=== PATIENT | male | born 1945 | race Caucasian/White ===

== ENCOUNTER 2019-05-11 10:17 | Emergency (ER) | payer MEDICARE, BC ==
[~2019-05-11] VITALS: Ht 185.4 cm; Wt 97.0 kg
--- NOTE | 2019-05-11 10:50 | NUR ---
HAD EGD AND COLONSCOPY STOMACH WAS INFLAMED AND HAD A RING IN HIS ESOPHAGUS
[2019-05-11 11:10] LABS: CLARITY,URINE CLEAR (Clear); COLOR,URINE YELLOW (Yellow); GLUCOSE, URINE NEGATIVE (Neg); KETONES,URINE NEGATIVE (Neg); LEUKOCYTE ESTERASE ,URINE NEGATIVE (Neg); NITRITES, URINE NEGATIVE (Neg); OCCULT BLOOD,URINE TRACE-LYSED (Neg); PH,URINE 5.5 (4.8-8.0); PROTEIN,URINE NEGATIVE (Neg); UROBILINOGEN,URINE 0.2 E.U/dL (0.2-1.0)
[2019-05-11 11:12] LABS: BASOPHILS # (AUTO) 0.1 X10'3 (0-0.2); BASOPHILS % (AUTO) 0.8 % (0-1); EOSINOPHILS % (AUTO) 0.2 % (0-6); HEMOGLOBIN 14.2 g/dl (14.0-17.9); LYMPHOCYTES % (AUTO) 9.2 % (21-51); MEAN CORPUSCULAR HEMOGLOBIN 29.9 PG (27.0-31.0); MEAN CORPUSCULAR HGB CONC 33.8 g/dL (33.0-36.5); MEAN CORPUSCULAR VOLUME 88.3 FL (78-98); MEAN PLATELET VOLUME 8.6 FL (7.4-10.4); NEUTROPHILS # (AUTO) 8.3 X10'3 (1.8-7.7); NEUTROPHILS % (AUTO) 79.8 % (42-75); PLATELET COUNT 270 X10'3 (140-440); RED BLOOD COUNT 4.76 X10'6 (4.70-6.10); RED CELL DISTRIBUTION WIDTH 14.3 % (11.5-14.5); WHITE BLOOD COUNT 10.4 X10'3 (4.5-11.0)
[2019-05-11] MEDS ORDERED: mag hydrox/Alum hydrox/simeth 30ml oral suspension PO ONE (11:20)
[2019-05-11] MEDS ORDERED: famotidine 20mg tablet PO ONE (11:20)
[2019-05-11 11:27] LABS: ALANINE AMINOTRANSFERASE 26 U/L (12-78); ALBUMIN 4.2 G/DL (3.4-5.0); ALBUMIN/GLOBULIN RATIO 1.3 (1.1-1.5); ALKALINE PHOSPHATASE 90 IU/L (46-116); ANION GAP 6 (8-16); ASPARTATE AMINO TRANSFERASE 19 U/L (10-37); BILIRUBIN,TOTAL 0.9 MG/DL (0.1-1.0); BLOOD UREA NITROGEN 15 MG/DL (7-18); BUN/CREATININE RATIO 14.9 (5.4-32.0); CALCIUM 9.4 MG/DL (8.5-10.1); CHLORIDE 102 MMOL/L (99-107); CREATININE 1.01 MG/DL (0.60-1.10); GLUCOSE 108 MG/DL (70-104); LIPASE 87 U/L (73-393); POTASSIUM 3.9 MMOL/L (3.5-5.1); SODIUM 136 MMOL/L (135-145); TOTAL CARBON DIOXIDE 28.5 MMOL/L (24-32); TOTAL PROTEIN 7.4 G/DL (6.4-8.2); eGFR 72 ML/MIN
[2019-05-11 11:31] LABS: UA COLLECTION TYPE CLN CATCH MIDSTREAM
[2019-05-11 11:32] LABS: BACTERIA,URINE NONE SEEN /HPF (Neg); MUCUS STRANDS FEW /LPF (Neg); RBC,URINE 0-2 /HPF (0-2); SQUAMOUS EPITHELIAL CELL,UR FEW /LPF (FEW); WBC,URINE NONE SEEN /HPF (0-4)
[2019-05-11 11:54] VITALS: BP 142/60
[2019-05-11] MEDS ORDERED: FAMO-128 PO (12:40)
[2019-05-11] MEDS ORDERED: DICY10CA88 PO (12:40)
== END 2019-05-11 12:48 | disposition home or self-care (01) ==
LOC: ER 10:17
DX: R10.13 Epigastric pain (principal)
CPT/HCPCS: 36415; 74176; 80053; 81001; 83690; 84484; 85025; 93005; 99284

== ENCOUNTER 2021-01-04 18:22 | Inpatient (IN) | payer MEDICARE, BC ==
[~2021-01-04] VITALS: Ht 184.2 cm; Wt 88.6 kg
[~2021-01-04 18:22] MED LIST: DICY10CA88 PO; FAMO-128 PO
--- NOTE | 2021-01-04 19:00 | NUR ---
PATIENT'S INITIAL O2 SAT IS 88% ON ROOM AIR. O2 PER NC APPLIED AT 3LPM. O2 SATS 92% WITH O2 IN PLACE.
[2021-01-04 19:04] LABS: BASOPHILS % (AUTO) 0.3 % (0-1); EOSINOPHILS % (AUTO) 0 % (0-6); HEMOGLOBIN 13.8 g/dl (14.0-17.9); LYMPHOCYTES # (AUTO) 0.8 X10'3 (1.1-4.8); LYMPHOCYTES % (AUTO) 8.8 % (21-51); MEAN CORPUSCULAR HEMOGLOBIN 29.2 PG (27.0-31.0); MEAN CORPUSCULAR HGB CONC 34.4 g/dL (33.0-36.5); MEAN PLATELET VOLUME 7.8 FL (7.4-10.4); MONOCYTES # (AUTO) 0.4 X10'3 (0-0.9); MONOCYTES % (AUTO) 4.8 % (2-12); NEUTROPHILS # (AUTO) 7.8 X10'3 (1.8-7.7); NEUTROPHILS % (AUTO) 86.1 % (42-75); PLATELET COUNT 298 X10'3 (140-440); RED CELL DISTRIBUTION WIDTH 14.1 % (11.5-14.5); WHITE BLOOD COUNT 9.1 X10'3 (4.5-11.0)
[2021-01-04 19:17] LABS: ALANINE AMINOTRANSFERASE 92 U/L (12-78); ALBUMIN 2.9 G/DL (3.4-5.0); ALBUMIN/GLOBULIN RATIO 0.7 (1.1-1.5); ALKALINE PHOSPHATASE 117 IU/L (46-116); ANION GAP 12 (8-16); ASPARTATE AMINO TRANSFERASE 61 U/L (10-37); BLOOD UREA NITROGEN 21 MG/DL (7-18); BUN/CREATININE RATIO 15.7 (5.4-32.0); C-REACTIVE PROTEIN 11.91 MG/DL (0.0-0.5); CALCIUM 8.5 MG/DL (8.5-10.1); CHLORIDE 100 MMOL/L (99-107); CREATININE 1.34 MG/DL (0.60-1.10); GLUCOSE 142 MG/DL (70-104); LACTATE DEHYDROGENASE 316 U/L (85-227); POTASSIUM 4.4 MMOL/L (3.5-5.1); SODIUM 134 MMOL/L (135-145); TOTAL CARBON DIOXIDE 21.9 MMOL/L (24-32); TOTAL PROTEIN 6.8 G/DL (6.4-8.2); eGFR 52 ML/MIN
[2021-01-04] MEDS ORDERED: iohexol 350MG/ML 100ml bottle IV ONE (19:54)
--- NOTE | 2021-01-04 20:45 | NUR ---
PATIENT PLACED IN ROOM 12 (ER) AFTER CT SCAN. WAS NOTIFIED THAT PATIENT WILL BE KEPT INSIDE ER FOR FURTHER TREATMENT/EVALUATION. STATES SHE WILL GO HOME AND WILL CALL BACK LATER FOR UPDATES. , YESENIA KNAPP CONTACT NUMBER ([phone]
[2021-01-04] MEDS ORDERED: DEXA4TAB PO (20:53)
[2021-01-04] MEDS ORDERED: FLO0.4C PO (20:53)
[2021-01-04] MEDS ORDERED: AZIT500T9 PO (20:53)
[2021-01-04] MEDS ORDERED: dexamethasone 4mg tablet PO ONE (20:55)
[2021-01-04] MEDS ORDERED: DEXAMETHASONE 6 MG TABLET PO ONE (21:00)
[2021-01-04] MEDS ORDERED: enoxaparin 100mg/ml syringe SUBCUT ONE (21:25)
[2021-01-04 21:41] LABS: PARTIAL THROMBOPLASTIN TIME 31 SECONDS (22-32)
[2021-01-05] MEDS ORDERED: mag hydrox/Alum hydrox/simeth 30ml oral suspension PO PRN (00:15)
[2021-01-05] MEDS ORDERED: potassium Cl 40MEQ/1/2NS 520ml 520 ML IV PRN ×2 (00:15)
[2021-01-05] MEDS ORDERED: ondansetron/PF 4mg/2ml inj IV PRN (00:15)
[2021-01-05] MEDS ORDERED: magnesium hydroxide 30ml (MOM) UD suspension PO PRN (00:15)
[2021-01-05] MEDS ORDERED: acetaminophen 325mg tablet PO PRN (00:15)
[2021-01-05] MEDS ORDERED: potassium Cl 20 mEq SR tablet PO PRN ×2 (00:15)
[2021-01-05] MEDS ORDERED: dexamethasone 4mg/ml inj IV SCH (02:00)
[2021-01-05 03:45] VITALS: BP 136/68
[2021-01-05] MEDS: Melatonin 3mg tablet PO SCH ×2 (04:15→21:11)
--- NOTE | 2021-01-05 07:03 | NUR ---
reported to days. noted pt resting after melatonin. call light in reach. has not voided since 0400 admission.
[2021-01-05] MEDS ORDERED: enoxaparin 30mg/0.3ml syringe SUBCUT SCH (08:00)
[2021-01-05] MEDS ORDERED: enoxaparin 60mg/0.6ml syringe SUBCUT SCH (08:00)
[2021-01-05] MEDS: K and/or MAG REPLACEMENT MC SCH ×2 (08:00→20:00)
[2021-01-05] MEDS ORDERED: azithromycin 250mg tablet PO SCH (08:00)
[2021-01-05 10:00] VITALS: BP 125/69
[2021-01-05] MEDS: tamsulosin 0.4mg capsule PO SCH (11:15)
[2021-01-05] MEDS: docusate sod 100mg capsule PO SCH ×2 (11:16→21:11)
[2021-01-05] MEDS ORDERED: apixaban 5mg tablet PO ONE (11:20)
[2021-01-05] MEDS: dexamethasone 4mg/ml inj IV SCH ×2 (11:29→21:12)
--- NOTE | 2021-01-05 13:34 | NUR ---
Malnutrition Consult "COVID wt loss": Pt admit DX COVID-19 PNA, and new PE per EMR. Pt has no significant weakness noted, no edema, skin intact, appears WD/WN per ER note, and didn't report specific amount of wt loss per EMR. Current standing scald wt making BMI 26 w/ no prior scaled wt hx. PO regular diet meals pending this admit. 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 Will monitor for nutrition intervention needs this admit. Addendum: 01/05/21 at [address] Amended: Links added.
[2021-01-05 14:00] VITALS: BP 125/70
[2021-01-05 18:00] VITALS: BP 128/61
[2021-01-05] MEDS ORDERED: Melatonin 3mg tablet PO SCH (21:00)
[2021-01-05] MEDS: apixaban 5mg tablet PO SCH (21:10)
[2021-01-05 22:00] VITALS: BP 122/58
[2021-01-06 02:00] VITALS: BP 100/52
[2021-01-06 06:00] VITALS: BP 112/67
--- NOTE | 2021-01-06 06:20 | NUR ---
received report from liz carrillo
[2021-01-06] MEDS: K and/or MAG REPLACEMENT MC SCH ×2 (08:00→20:00)
[2021-01-06 08:32] LABS: BASOPHILS % (AUTO) 0.1 % (0-1); EOSINOPHILS % (AUTO) 0 % (0-6); HEMATOCRIT 41.3 % (42.0-52.0); HEMOGLOBIN 13.7 g/dl (14.0-17.9); LYMPHOCYTES # (AUTO) 0.6 X10'3 (1.1-4.8); LYMPHOCYTES % (AUTO) 5.2 % (21-51); MEAN CORPUSCULAR HEMOGLOBIN 28.7 PG (27.0-31.0); MEAN CORPUSCULAR HGB CONC 33.1 g/dL (33.0-36.5); MEAN CORPUSCULAR VOLUME 86.7 FL (78-98); MEAN PLATELET VOLUME 8.1 FL (7.4-10.4); MONOCYTES # (AUTO) 0.7 X10'3 (0-0.9); MONOCYTES % (AUTO) 5.9 % (2-12); NEUTROPHILS # (AUTO) 10.3 X10'3 (1.8-7.7); NEUTROPHILS % (AUTO) 88.8 % (42-75); PLATELET COUNT 322 X10'3 (140-440); RED BLOOD COUNT 4.77 X10'6 (4.70-6.10); RED CELL DISTRIBUTION WIDTH 14.2 % (11.5-14.5); WHITE BLOOD COUNT 11.6 X10'3 (4.5-11.0)
[2021-01-06] MEDS: apixaban 5mg tablet PO SCH ×2 (08:35→20:32)
[2021-01-06] MEDS: docusate sod 100mg capsule PO SCH ×2 (08:35→20:32)
[2021-01-06] MEDS: tamsulosin 0.4mg capsule PO SCH (08:36)
[2021-01-06] MEDS: dexamethasone 4mg/ml inj IV SCH ×2 (08:38→20:32)
[2021-01-06 08:57] LABS: ALANINE AMINOTRANSFERASE 92 U/L (12-78); ALBUMIN 2.7 G/DL (3.4-5.0); ALBUMIN/GLOBULIN RATIO 0.7 (1.1-1.5); ALKALINE PHOSPHATASE 115 IU/L (46-116); ANION GAP 12 (8-16); ASPARTATE AMINO TRANSFERASE 44 U/L (10-37); BILIRUBIN,TOTAL 0.7 MG/DL (0.1-1.0); BLOOD UREA NITROGEN 28 MG/DL (7-18); BUN/CREATININE RATIO 25.5 (5.4-32.0); CALCIUM 8.9 MG/DL (8.5-10.1); CHLORIDE 106 MMOL/L (99-107); GLUCOSE 120 MG/DL (70-104); POTASSIUM 4.1 MMOL/L (3.5-5.1); SODIUM 142 MMOL/L (135-145); TOTAL CARBON DIOXIDE 23.7 MMOL/L (24-32); TOTAL PROTEIN 6.6 G/DL (6.4-8.2); eGFR 65 ML/MIN
[2021-01-06 10:00] VITALS: BP 110/60
[2021-01-06 14:00] VITALS: BP_SYST 106; BP_SYST 117; BP_DIAS 58; BP_DIAS 60
[2021-01-06 18:00] VITALS: BP 113/65
--- NOTE | 2021-01-06 18:24 | NUR ---
gave report to liz carrillo
[2021-01-06] MEDS: Melatonin 3mg tablet PO SCH (20:32)
[2021-01-06 22:00] VITALS: BP 144/70
[2021-01-07 02:00] VITALS: BP 125/71
[2021-01-07 06:00] VITALS: BP 110/60
[2021-01-07] MEDS: K and/or MAG REPLACEMENT MC SCH ×2 (07:36→20:00)
[2021-01-07] MEDS: apixaban 5mg tablet PO SCH ×2 (07:39→21:45)
[2021-01-07] MEDS: dexamethasone 4mg/ml inj IV SCH ×2 (07:40→21:44)
[2021-01-07] MEDS: tamsulosin 0.4mg capsule PO SCH (07:40)
[2021-01-07] MEDS: docusate sod 100mg capsule PO SCH ×2 (07:40→21:44)
[2021-01-07 08:31] LABS: BASOPHILS % (AUTO) 0.2 % (0-1); EOSINOPHILS % (AUTO) 0.6 % (0-6); HEMATOCRIT 39.3 % (42.0-52.0); HEMOGLOBIN 13.4 g/dl (14.0-17.9); LYMPHOCYTES # (AUTO) 0.9 X10'3 (1.1-4.8); LYMPHOCYTES % (AUTO) 10.2 % (21-51); MEAN CORPUSCULAR HEMOGLOBIN 29.3 PG (27.0-31.0); MEAN CORPUSCULAR HGB CONC 34.2 g/dL (33.0-36.5); MEAN CORPUSCULAR VOLUME 85.6 FL (78-98); MEAN PLATELET VOLUME 8.3 FL (7.4-10.4); MONOCYTES # (AUTO) 0.6 X10'3 (0-0.9); MONOCYTES % (AUTO) 6.7 % (2-12); NEUTROPHILS % (AUTO) 82.3 % (42-75); PLATELET COUNT 337 X10'3 (140-440); RED BLOOD COUNT 4.59 X10'6 (4.70-6.10); RED CELL DISTRIBUTION WIDTH 13.9 % (11.5-14.5); WHITE BLOOD COUNT 8.5 X10'3 (4.5-11.0)
[2021-01-07 08:42] LABS: ALANINE AMINOTRANSFERASE 152 U/L (12-78); ALBUMIN 2.6 G/DL (3.4-5.0); ALBUMIN/GLOBULIN RATIO 0.6 (1.1-1.5); ALKALINE PHOSPHATASE 132 IU/L (46-116); ANION GAP 11 (8-16); ASPARTATE AMINO TRANSFERASE 69 U/L (10-37); BILIRUBIN,TOTAL 0.8 MG/DL (0.1-1.0); BLOOD UREA NITROGEN 23 MG/DL (7-18); BUN/CREATININE RATIO 23.7 (5.4-32.0); CALCIUM 8.8 MG/DL (8.5-10.1); CHLORIDE 106 MMOL/L (99-107); CREATININE 0.97 MG/DL (0.60-1.10); GLUCOSE 83 MG/DL (70-104); POTASSIUM 4.6 MMOL/L (3.5-5.1); SODIUM 142 MMOL/L (135-145); TOTAL CARBON DIOXIDE 25.5 MMOL/L (24-32); TOTAL PROTEIN 6.7 G/DL (6.4-8.2); eGFR 75 ML/MIN
[2021-01-07 09:38] LABS: D-DIMER 0.82 MG/L FEU (0-0.50)
[2021-01-07 10:00] VITALS: BP 123/66
[2021-01-07 14:00] VITALS: BP 121/64
[2021-01-07 14:18] VITALS: BP 110/60
[2021-01-07 18:05] VITALS: BP 138/68
[2021-01-07] MEDS: Melatonin 3mg tablet PO SCH (21:44)
[2021-01-08] VITALS: BP 118/70
[2021-01-08 06:00] VITALS: BP 116/67
[2021-01-08] MEDS: tamsulosin 0.4mg capsule PO SCH (07:32)
[2021-01-08] MEDS: apixaban 5mg tablet PO SCH ×2 (07:32→21:03)
[2021-01-08] MEDS: docusate sod 100mg capsule PO SCH ×2 (07:32→21:02)
[2021-01-08] MEDS: K and/or MAG REPLACEMENT MC SCH ×2 (07:33→20:00)
[2021-01-08] MEDS: dexamethasone 4mg/ml inj IV SCH ×2 (07:33→21:03)
[2021-01-08 08:48] LABS: BASOPHILS % (AUTO) 0.2 % (0-1); EOSINOPHILS # (AUTO) 0.1 X10'3 (0-0.9); EOSINOPHILS % (AUTO) 1.3 % (0-6); HEMATOCRIT 42.2 % (42.0-52.0); HEMOGLOBIN 14.2 g/dl (14.0-17.9); LYMPHOCYTES # (AUTO) 0.8 X10'3 (1.1-4.8); LYMPHOCYTES % (AUTO) 13.6 % (21-51); MEAN CORPUSCULAR HEMOGLOBIN 29.2 PG (27.0-31.0); MEAN CORPUSCULAR HGB CONC 33.5 g/dL (33.0-36.5); MEAN CORPUSCULAR VOLUME 87.1 FL (78-98); MEAN PLATELET VOLUME 8.2 FL (7.4-10.4); MONOCYTES # (AUTO) 0.5 X10'3 (0-0.9); MONOCYTES % (AUTO) 8.6 % (2-12); NEUTROPHILS # (AUTO) 4.5 X10'3 (1.8-7.7); NEUTROPHILS % (AUTO) 76.3 % (42-75); PLATELET COUNT 377 X10'3 (140-440); RED BLOOD COUNT 4.85 X10'6 (4.70-6.10); RED CELL DISTRIBUTION WIDTH 14.2 % (11.5-14.5); WHITE BLOOD COUNT 5.9 X10'3 (4.5-11.0)
[2021-01-08 09:07] LABS: D-DIMER 0.56 MG/L FEU (0-0.50)
[2021-01-08 09:22] LABS: ALANINE AMINOTRANSFERASE 176 U/L (12-78); ALBUMIN 2.7 G/DL (3.4-5.0); ALBUMIN/GLOBULIN RATIO 0.6 (1.1-1.5); ALKALINE PHOSPHATASE 160 IU/L (46-116); ANION GAP 10 (8-16); ASPARTATE AMINO TRANSFERASE 61 U/L (10-37); BILIRUBIN,TOTAL 0.9 MG/DL (0.1-1.0); BLOOD UREA NITROGEN 25 MG/DL (7-18); BUN/CREATININE RATIO 22.3 (5.4-32.0); C-REACTIVE PROTEIN 8.69 MG/DL (0.0-0.5); CALCIUM 8.8 MG/DL (8.5-10.1); CHLORIDE 103 MMOL/L (99-107); CREATININE 1.12 MG/DL (0.60-1.10); GLUCOSE 97 MG/DL (70-104); POTASSIUM 4.7 MMOL/L (3.5-5.1); SODIUM 139 MMOL/L (135-145); TOTAL CARBON DIOXIDE 26.5 MMOL/L (24-32); TOTAL PROTEIN 7.1 G/DL (6.4-8.2); eGFR 64 ML/MIN
[2021-01-08 10:00] VITALS: BP 107/71
[2021-01-08 16:14] VITALS: BP 104/65
[2021-01-08 18:00] VITALS: BP 120/61
[2021-01-08] MEDS: Melatonin 3mg tablet PO SCH (21:02)
[2021-01-08 22:00] VITALS: BP 114/66
[2021-01-09 02:00] VITALS: BP 112/74
[2021-01-09 05:15] LABS: ABG BASE EXCESS 0.6 mmol/L (-2.0-2.0); ABG OXYGEN SATURATION 95.5 % (94-97); ABG PCO2 (T) 33.9 mmHg (35.0-48.0); ABG PO2 (T) 74.1 mmHg (75.0-100.0); ALLEN'S TEST POSITIVE; FCOHb 0.5 % (0.0-3.9); FLOW 4 L/min; FMetHb 0.2 % (0.0-1.5); FO2Hb 94.8 % (94-97); PATIENT TEMPERATURE 36.4; TOTAL HEMOGLOBIN 14.4 G/dl (14.0-18.0)
[2021-01-09 06:00] VITALS: BP 123/63
[2021-01-09] MEDS: K and/or MAG REPLACEMENT MC SCH (08:00)
[2021-01-09 08:35] LABS: BASOPHILS % (AUTO) 0.5 % (0-1); EOSINOPHILS # (AUTO) 0.1 X10'3 (0-0.9); EOSINOPHILS % (AUTO) 1.1 % (0-6); HEMATOCRIT 42.4 % (42.0-52.0); HEMOGLOBIN 14.4 g/dl (14.0-17.9); LYMPHOCYTES # (AUTO) 1.1 X10'3 (1.1-4.8); LYMPHOCYTES % (AUTO) 15.1 % (21-51); MEAN CORPUSCULAR HEMOGLOBIN 29.4 PG (27.0-31.0); MEAN CORPUSCULAR VOLUME 86.5 FL (78-98); MEAN PLATELET VOLUME 8.3 FL (7.4-10.4); MONOCYTES # (AUTO) 0.5 X10'3 (0-0.9); MONOCYTES % (AUTO) 7.1 % (2-12); NEUTROPHILS # (AUTO) 5.5 X10'3 (1.8-7.7); NEUTROPHILS % (AUTO) 76.2 % (42-75); PLATELET COUNT 398 X10'3 (140-440); RED CELL DISTRIBUTION WIDTH 14.1 % (11.5-14.5); WHITE BLOOD COUNT 7.2 X10'3 (4.5-11.0)
[2021-01-09] MEDS: apixaban 5mg tablet PO SCH ×2 (08:47→19:44)
[2021-01-09] MEDS: tamsulosin 0.4mg capsule PO SCH (08:47)
[2021-01-09] MEDS: docusate sod 100mg capsule PO SCH ×2 (08:47→19:44)
[2021-01-09] MEDS: dexamethasone 4mg/ml inj IV SCH ×2 (08:48→19:52)
[2021-01-09 09:22] LABS: D-DIMER 0.51 MG/L FEU (0-0.50)
[2021-01-09 09:26] LABS: ALANINE AMINOTRANSFERASE 163 U/L (12-78); ALBUMIN 2.9 G/DL (3.4-5.0); ALBUMIN/GLOBULIN RATIO 0.6 (1.1-1.5); ALKALINE PHOSPHATASE 177 IU/L (46-116); ANION GAP 11 (8-16); ASPARTATE AMINO TRANSFERASE 45 U/L (10-37); BILIRUBIN,TOTAL 0.8 MG/DL (0.1-1.0); BLOOD UREA NITROGEN 26 MG/DL (7-18); BUN/CREATININE RATIO 26.8 (5.4-32.0); C-REACTIVE PROTEIN 5.19 MG/DL (0.0-0.5); CALCIUM 9.5 MG/DL (8.5-10.1); CHLORIDE 104 MMOL/L (99-107); CREATININE 0.97 MG/DL (0.60-1.10); GLUCOSE 106 MG/DL (70-104); POTASSIUM 4.9 MMOL/L (3.5-5.1); SODIUM 141 MMOL/L (135-145); TOTAL CARBON DIOXIDE 25.6 MMOL/L (24-32); TOTAL PROTEIN 7.5 G/DL (6.4-8.2); eGFR 75 ML/MIN
[2021-01-09 10:00] VITALS: BP 125/67
--- NOTE | 2021-01-09 13:33 | NUR ---
Initial: Patient admitted for acute hypoxemic respiratory failure with COVID PNA with newly diagnosed PE. Currently on a regular diet and eating well with mostly 75% PO intake though improving with recent 75-100% PO intake. LBM 01/08, receiving routine and PRN bowel care. Pt previously constipated with prior BM 01/02. No nutrition intervention implemented at this time. Will continue to follow and make recommendations as appropriate. Recommendations: 1) Continue regular diet 2) Monitor need for additional protein 3) Routine bowel care 4) Weekly scaled weights Addendum: 01/09/21 at [address] Amended: Links added.
[2021-01-09 14:00] VITALS: BP 113/70
[2021-01-09 14:22] LABS: BURR CELLS 1+; PLATELET ESTIMATE NORMAL; ROULEAUX 1+; TOTAL CELLS COUNTED 100
--- NOTE | 2021-01-09 15:14 | NUR ---
O2 Sat at rest on room air:_88__% If below 89%: Recovery O2 Sat at rest on __1_LPM:_92__%:via____nasal cannula (mask/nasal cannula, etc..) No further documentation is necessary.
[2021-01-09] MEDS ORDERED: PRED10TA23 PO (15:36)
[2021-01-09] MEDS ORDERED: APIX5TAB3 PO (15:36)
--- NOTE | 2021-01-09 18:15 | NUR ---
All d/c ppwk was reviewed with patient. Pt had the opportunity to ask questions. No additional questions at this time. All personal belongings have been packed and he is ready when his ride comes to get him. Probably 1930. I tried to call [facility] re: new RX. They are closed. Advised pt that is [facility] did not get new RX to call us in the AM and we will call it in. Gave phone # [phone]. He verbalized understanding.
--- NOTE | 2021-01-09 18:34 | NUR ---
Problems reprioritized. Patient report given, questions answered & plan of care reviewed with RORO Burleson.
--- NOTE | 2021-01-09 20:02 | NUR ---
RCD VERBAL REPORT AND ASSUMED CARE OF PATIENT. MEDS GIVEN AND PATIENT EDUCATED ON PE, GIVEN WRITTEN INFO, HS MEDS AND DISCONTINUED TELEMETRY AND PIV. CATH TIP NARROW AND INTACT. PATIENT AWAITING TO COME PICK HIM UP THEN WILL TAKE HIM DOWNSTAIRS IN W/C WITH BELONGINGS AND HIS 02 TANK
--- NOTE | 2021-01-09 20:25 | NUR ---
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 PIV IN RAC DC'D WITH CATH TIP NARROW AND INTACT. PATIENT STATES "FEELING GREAT"
[2021-01-12] MEDS ORDERED: apixaban 5mg tablet PO SCH (08:00)
== END 2021-01-09 20:29 | disposition home or self-care (01) | DRG 177 ==
LOC: ER 18:22 → ED HOLD 01-05 00:15 → ORTHO 4S 01-05 03:25
PROVIDERS: ADMIT Internal Medicine; ATTEND Family Medicine
PROC: B32T1ZZ Computerized Tomography (CT Scan) of Left Pulmonary Artery using Low Osmolar Contrast (ICD-10-PCS; principal; 2021-01-04)
PROC: B3201ZZ Computerized Tomography (CT Scan) of Thoracic Aorta using Low Osmolar Contrast (ICD-10-PCS; 2021-01-04)
PROC: B32S1ZZ Computerized Tomography (CT Scan) of Right Pulmonary Artery using Low Osmolar Contrast (ICD-10-PCS; 2021-01-04)
DX: U07.1 COVID-19 (principal); J12.82 Pneumonia due to coronavirus disease 2019; I26.93 Single subsegmental thrombotic pulmonary embolism without acute cor pulmonale; J96.01 Acute respiratory failure with hypoxia; N40.0 Benign prostatic hyperplasia without lower urinary tract symptoms; Z79.899 Other long term (current) drug therapy
CPT/HCPCS: 36415; 36600; 71045; 71275; 80053; 82803; 83615; 84145; 85007; 85018; 85025; 85379; 85610; 85730; 86140; 87081; 99285; G0378; J1100; J1650; J8540; Q9967

== ENCOUNTER 2021-12-16 10:13 | Emergency (ER) | payer MEDICARE, BC ==
[~2021-12-16] VITALS: Ht 182.9 cm; Wt 89.5 kg
[~2021-12-16 10:13] MED LIST changes: +APIX5TAB3 PO; -DICY10CA88 PO; -FAMO-128 PO; +FLO0.4C PO
[2021-12-16 11:21] LABS: BASOPHILS % (AUTO) 0.5 % (0-1); EOSINOPHILS # (AUTO) 0.1 X10'3 (0-0.9); EOSINOPHILS % (AUTO) 1.7 % (0-6); HEMATOCRIT 42.8 % (42.0-52.0); HEMOGLOBIN 14.3 g/dl (14.0-17.9); LYMPHOCYTES # (AUTO) 1.4 X10'3 (1.1-4.8); LYMPHOCYTES % (AUTO) 27.4 % (21-51); MEAN CORPUSCULAR HEMOGLOBIN 29.2 PG (27.0-31.0); MEAN CORPUSCULAR HGB CONC 33.4 g/dL (33.0-36.5); MEAN CORPUSCULAR VOLUME 87.4 FL (78-98); MEAN PLATELET VOLUME 8.4 FL (7.4-10.4); MONOCYTES # (AUTO) 0.5 X10'3 (0-0.9); MONOCYTES % (AUTO) 10.4 % (2-12); NEUTROPHILS # (AUTO) 3.1 X10'3 (1.8-7.7); PLATELET COUNT 245 X10'3 (140-440); RED BLOOD COUNT 4.89 X10'6 (4.70-6.10); RED CELL DISTRIBUTION WIDTH 13.8 % (11.5-14.5); WHITE BLOOD COUNT 5.2 X10'3 (4.5-11.0)
[2021-12-16 11:34] LABS: ALANINE AMINOTRANSFERASE 25 U/L (12-78); ALBUMIN 4.3 G/DL (3.4-5.0); ALBUMIN/GLOBULIN RATIO 1.4 (1.1-1.5); ALKALINE PHOSPHATASE 107 IU/L (46-116); ANION GAP 13 (8-16); ASPARTATE AMINO TRANSFERASE 17 U/L (10-37); BILIRUBIN,TOTAL 0.6 MG/DL (0.1-1.0); BLOOD UREA NITROGEN 22 MG/DL (7-18); BUN/CREATININE RATIO 18.2 (5.4-32.0); CALCIUM 9.3 MG/DL (8.5-10.1); CHLORIDE 103 MMOL/L (99-107); CREATININE 1.21 MG/DL (0.60-1.10); GLUCOSE 97 MG/DL (70-104); POTASSIUM 4.4 MMOL/L (3.5-5.1); SODIUM 140 MMOL/L (135-145); TOTAL CARBON DIOXIDE 23.8 MMOL/L (24-32); TOTAL PROTEIN 7.4 G/DL (6.4-8.2); eGFR 58 ML/MIN
[2021-12-16] MEDS ORDERED: normal saline 1000ml 1,000 ML IV ONE (13:50)
--- NOTE | 2021-12-16 13:57 | NUR ---
provider at bedside.
[2021-12-16 14:38] VITALS: BP 137/76
== END 2021-12-16 14:40 | disposition home or self-care (01) ==
LOC: ER 10:13
DX: E86.0 Dehydration (principal); R42 Dizziness and giddiness; R00.2 Palpitations; G47.00 Insomnia, unspecified; I26.99 Other pulmonary embolism without acute cor pulmonale; U09.9 Post COVID-19 condition, unspecified
CPT/HCPCS: 36415; 71045; 80053; 84484; 85025; 93005; 99285; J7030